=== PATIENT | male | born 1955 | race Caucasian/White ===

== ENCOUNTER 2019-08-13 14:54 | Emergency (ER) | payer OTHER ==
[~2019-08-13] VITALS: Ht 170.2 cm; Wt 77.1 kg
[2019-08-13] MEDS ORDERED: MAXIDEX5 ML (15:38)
[2019-08-13] MEDS ORDERED: DILTIAZEM ER60 MG (15:38)
[2019-08-13] MEDS ORDERED: OMEPRAZOLE20 MG (15:38)
[2019-08-13] MEDS ORDERED: SULFAMETHOXAZO1 EACH (15:38)
[2019-08-13] MEDS ORDERED: TERAZOSIN HCL10 MG (15:39)
[2019-08-13] MEDS ORDERED: PROSCAR5 MG (15:39)
[2019-08-13] MEDS ORDERED: TAMS0.4C (15:39)
== END 2019-08-13 17:53 | disposition home or self-care (01) ==
LOC: ER 14:54
DX: N40.1 Benign prostatic hyperplasia with lower urinary tract symptoms (principal); R33.8 Other retention of urine; N39.0 Urinary tract infection, site not specified; B96.89 Other specified bacterial agents as the cause of diseases classified elsewhere

== ENCOUNTER 2019-08-20 10:57 | Inpatient (IN) | payer OTHER ==
[~2019-08-20] VITALS: Ht 167.6 cm; Wt 77.1 kg
[~2019-08-20 10:57] MED LIST: DILTIAZEM ER60 MG; MAXIDEX5 ML; OMEPRAZOLE20 MG; PROSCAR5 MG; SULFAMETHOXAZO1 EACH; TAMS0.4C; TERAZOSIN HCL10 MG
[2019-09-26] MEDS ORDERED: LIPI PO (08:42)
[2019-09-26] MEDS ORDERED: TERAZOSIN HCL1 M1 PO (08:43)
[2019-09-26] MEDS ORDERED: SINGULAIR10 MG PO (08:43)
[2019-10-03] MEDS ORDERED: ATORVASTATIN CA10 MG PO (07:37)
== END 2019-10-06 11:46 | disposition home or self-care (01) | DRG 708 ==
LOC: SURH 10-03 05:10 → O/R 10-03 05:10 → SURG 10-03 07:00 → SURH 10-03 11:13
PROVIDERS: ADMIT Urology
PROC: 0T7D8ZZ Dilation of Urethra, Via Natural or Artificial Opening Endoscopic (ICD-10-PCS; 2019-10-03)
PROC: 0VT00ZZ Resection of Prostate, Open Approach (ICD-10-PCS; principal; 2019-10-03 07:00)
DX: N40.1 Benign prostatic hyperplasia with lower urinary tract symptoms (principal); R33.8 Other retention of urine; N13.5 Crossing vessel and stricture of ureter without hydronephrosis